=== PATIENT | female | born 1950 | race Asian ===

== ENCOUNTER 2018-08-12 11:37 | Emergency (ER) | payer MEDICAID ==
[~2018-08-12] VITALS: Ht 160 cm; Wt 73.9 kg
[2018-08-12 11:42] VITALS: BP 173/73
--- NOTE | 2018-08-12 12:11 | NUR ---
c/o dizziness upon awakening, high blood pressure, and jaw pain and tightness. pt also states she felt a prickly sensation in her chest but it has since gone away. DENIES N/V/D; SKIN IS PINK/WARM/DRY; AAOX4; LUNGS CLEAR BL; HR EVEN AND REGULAR; PT DENIES ANY FEVER, CP, SOB, OR COUGH AT THIS TIME; PATIENT STATES PAIN OF 5/10 AT THIS TIME; VSS; PATIENT POSITIONED FOR COMFORT; HOB ELEVATED; BEDRAILS UP X2; BED DOWN. ER MD MADE AWARE OF PT STATUS.
[2018-08-12 12:53] LABS: BASOPHILS % (AUTO) 0.5 % (0.0-2.0); EOSINOPHILS # (AUTO) 0.2 K/uL (0-0.4); EOSINOPHILS % (AUTO) 3.5 % (0.0-4.0); HEMATOCRIT 37.2 % (36-48); HEMOGLOBIN 12.8 g/dL (12.0-16.0); LYMPHOCYTES # (AUTO) 1.7 K/uL (2.5-16.5); LYMPHOCYTES % (AUTO) 31.7 % (20.5-51.1); MEAN CORPUSCULAR HEMOGLOBIN 29 pg (27-31); MEAN CORPUSCULAR HGB CONC 34 g/dL (33-37); MEAN CORPUSCULAR VOLUME 85.2 fL (80-94); MONOCYTES # (AUTO) 0.3 K/uL (0.8-1.0); NEUTROPHILS # (AUTO) 3.1 K/uL (1.8-7.7); NEUTROPHILS % (AUTO) 58.3 % (42.2-75.2); PLATELET COUNT (AUTO) 221 K/uL (140-450); RED BLOOD CELL COUNT(AUTO) 4.37 MIL/uL (4.20-5.40); RED CELL DISTRIBUTION WIDTH 13.7 % (11.6-13.7); WHITE BLOOD COUNT (AUTO) 5.3 K/uL (4.8-10.8)
[2018-08-12 13:01] LABS: ANION GAP 10.8 (8-16); CARBON DIOXIDE 28.6 mmol/L (21-32); CREATININE 0.8 mg/dL (0.6-1.3); POTASSIUM 3.4 mmol/L (3.5-5.1)
[2018-08-12 13:05] LABS: PROTHROMBIN TIME 9.9 secs (10.8-13.4)
--- NOTE | 2018-08-12 13:07 | NUR ---
PATIENT TAKEN TO CT WITH NIKOLE VIA JESUS MANUELRRICCARDO.
[2018-08-12 13:09] LABS: ALBUMIN 3.7 g/dL (3.4-5.0); TOTAL BILIRUBIN 0.6 mg/dL (0.0-1.0)
--- NOTE | 2018-08-12 13:20 | NUR ---
PATIENT RETURN FROM CT.
--- NOTE | 2018-08-12 13:40 | NUR ---
CAME BACK FROM LUNCH BREAK. CHECK PT. PT COMPLAINTS LEFT JAW TINGLING. MD MADE AWARE. VITAL SIGNS STABLE. NO SOB.
[2018-08-12] MEDS ORDERED: ASPIRIN 81 MG TAB.CHEW PO ONE (13:45)
--- NOTE | 2018-08-12 14:07 | NUR ---
PT IS EATING LUNCH IN BED.
--- NOTE | 2018-08-12 15:40 | NUR ---
DOCTOR AT BEDSIDE
[2018-08-12 16:10] VITALS: BP 145/58
--- NOTE | 2018-08-12 16:27 | NUR ---
Patient discharged with v/s stable. Written and verbal after care instructions given and explained. Patient verbalized understanding. Ambulatory with steady gait. All questions addressed prior to discharge. Advised to follow up with PMD. WITH PT.
== END 2018-08-12 16:27 | disposition home or self-care (01) ==
LOC: MED 11:37
DX: I10 Essential (primary) hypertension (principal); R42 Dizziness and giddiness; Z88.8 Allergy status to other drugs, medicaments and biological substances
CPT/HCPCS: 36415; 70450; 71045; 80053; 81002; 84484; 85025; 85610; 85730; 93005; 99284; Q0092

== ENCOUNTER 2021-03-10 10:52 | Emergency (ER) | payer OTHER, MEDICAID ==
[~2021-03-10] VITALS: Ht 160 cm; Wt 72.1 kg
[2021-03-10 10:57] VITALS: BP 186/75
--- NOTE | 2021-03-10 11:49 | NUR ---
PT AMBULATED TO ER BED 7
[2021-03-10] MEDS ORDERED: HYDROXYZINE HYDROCHLORIDE 10 MG TAB PO ONE (12:20)
--- NOTE | 2021-03-10 12:32 | NUR ---
LAB AT PT BEDSIDE
--- NOTE | 2021-03-10 12:40 | NUR ---
70 Y/O F HEART PALPITAION SINCE THIS MORNING, FLUSHED FACE AND LEG CRAMPING ALL FROM THIS MORNING. BP 157/78 UPPON ASSESMENT. NKA HX: HTN, OSTEOARTHRITIS
[2021-03-10 12:44] LABS: BASOPHILS % (AUTO) 0.5 % (0.0-2.0); EOSINOPHILS # (AUTO) 0.3 K/uL (0-0.4); EOSINOPHILS % (AUTO) 4.6 % (0.0-4.0); HEMATOCRIT 37.6 % (36-48); HEMOGLOBIN 12.9 g/dL (12.0-16.0); LYMPHOCYTES # (AUTO) 1.5 K/uL (2.5-16.5); LYMPHOCYTES % (AUTO) 24.3 % (20.5-51.1); MEAN CORPUSCULAR HEMOGLOBIN 29 pg (27-31); MEAN CORPUSCULAR HGB CONC 34 g/dL (33-37); MEAN CORPUSCULAR VOLUME 83.9 fL (80-94); MONOCYTES # (AUTO) 0.5 K/uL (0.8-1.0); MONOCYTES % (AUTO) 7.8 % (1.7-9.3); NEUTROPHILS # (AUTO) 3.8 K/uL (1.8-7.7); NEUTROPHILS % (AUTO) 62.8 % (42.2-75.2); PLATELET COUNT (AUTO) 279 K/uL (140-450); RED BLOOD CELL COUNT(AUTO) 4.48 MIL/uL (4.20-5.40); RED CELL DISTRIBUTION WIDTH 14.7 % (11.6-13.7)
--- NOTE | 2021-03-10 13:00 | NUR ---
PATIENT AMBULATED TO RESTROOM W/ ASSISTANCE
[2021-03-10 13:22] LABS: ALBUMIN 4.1 g/dL (3.4-5.0); ANION GAP 10.2 (8-16); CARBON DIOXIDE 31.5 mmol/L (21-32); CREATININE 0.8 mg/dL (0.6-1.3); POTASSIUM 3.7 mmol/L (3.5-5.1); TOTAL BILIRUBIN 0.3 mg/dL (0.0-1.0)
[2021-03-10] MEDS ORDERED: HYDR25CA1 PO (14:30)
[2021-03-10 14:47] VITALS: BP 144/68
--- NOTE | 2021-03-10 14:48 | NUR ---
Patient discharged with v/s stable. Written and verbal after care instructions given and explained. Patient alert, oriented and verbalized understanding of instructions. Ambulatory with steady gait. All questions addressed prior to discharge. ID band removed. Patient advised to follow up with PMD. Rx of HYDROXYZINE PAMOATE given. Opportunity to ask questions provided and answered.
--- NOTE | 2021-03-10 14:49 | NUR ---
The patient's care was reviewed and supervised by Marsha Tavarez RN.
== END 2021-03-10 14:48 | disposition home or self-care (01) ==
LOC: MED 10:52
DX: R00.2 Palpitations (principal); F41.9 Anxiety disorder, unspecified; L53.9 Erythematous condition, unspecified; I10 Essential (primary) hypertension; Z79.899 Other long term (current) drug therapy; Z88.8 Allergy status to other drugs, medicaments and biological substances
CPT/HCPCS: 36415; 80053; 81002; 82553; 85025; 93005; 99284

== ENCOUNTER 2022-07-30 10:59 | Emergency (ER) | payer OTHER, MEDICAID ==
[~2022-07-30] VITALS: Ht 160 cm; Wt 72.6 kg
[~2022-07-30 10:59] MED LIST: HYDR25CA1 PO
[2022-07-30 11:14] VITALS: BP 152/73
--- NOTE | 2022-07-30 13:24 | NUR ---
URINE COLLECTED AND SENT TO LAB
[2022-07-30] MEDS ORDERED: ACETAMINOPHEN 325 MG TAB PO ONE (13:25)
--- NOTE | 2022-07-30 13:38 | NUR ---
BLOOD DRAWN BY PHLEB
[2022-07-30 13:53] LABS: ALBUMIN 4.1 g/dL (3.4-5.0); ANION GAP 8.8 (8-16); ASPARTATE AMINOTRANSFERASE 41 U/L (15-37); CARBON DIOXIDE 33.7 mmol/L (21-32); CHLORIDE 102 mmol/L (98-107); GLUCOSE 117 mg/dL (74-106); LIPASE 189 U/L (73-393); POTASSIUM 3.5 mmol/L (3.5-5.1); SODIUM SERUM 141 mmol/L (136-145); TOTAL BILIRUBIN 0.4 mg/dL (0.0-1.0); UREA NITROGEN, BLOOD 27 mg/dL (7-18)
[2022-07-30 14:11] LABS: BASOPHILS % (AUTO) 0.4 % (0.0-2.0); EOSINOPHILS # (AUTO) 0.2 K/uL (0-0.4); EOSINOPHILS % (AUTO) 3.8 % (0.0-4.0); HEMATOCRIT 37.3 % (36-48); HEMOGLOBIN 12.8 g/dL (12.0-16.0); LYMPHOCYTES # (AUTO) 1.7 K/uL (2.5-16.5); LYMPHOCYTES % (AUTO) 31.3 % (20.5-51.1); MEAN CORPUSCULAR HEMOGLOBIN 29 pg (27-31); MEAN CORPUSCULAR HGB CONC 34 g/dL (33-37); MEAN CORPUSCULAR VOLUME 85.4 fL (80-94); MONOCYTES # (AUTO) 0.4 K/uL (0.8-1.0); MONOCYTES % (AUTO) 6.9 % (1.7-9.3); NEUTROPHILS # (AUTO) 3.2 K/uL (1.8-7.7); NEUTROPHILS % (AUTO) 57.6 % (42.2-75.2); PLATELET COUNT (AUTO) 251 K/uL (140-450); RED BLOOD CELL COUNT(AUTO) 4.37 MIL/uL (4.20-5.40); RED CELL DISTRIBUTION WIDTH 14.7 % (11.6-13.7); WHITE BLOOD COUNT (AUTO) 5.5 K/uL (4.8-10.8)
[2022-07-30 15:46] LABS: APPEARANCE,URINE CLEAR (CLEAR); BILIRUBIN,URINE NEGATIVE (NEGATIVE); BLOOD, URINE NEGATIVE (NEGATIVE); COLOR,URINE YELLOW (YELLOW); LEUKOCYTE ESTERASE ,URINE NEGATIVE (NEGATIVE); NITRITE, URINE NEGATIVE (NEGATIVE); UGLUCOSE NEGATIVE (NEGATIVE)
[2022-07-30] MEDS ORDERED: NACL 0.9% 1,000 ML IV ONE ×2 (16:00→16:05)
--- NOTE | 2022-07-30 16:05 | NUR ---
TO BED 8 W NO DISTRESS.
[2022-07-30 16:25] VITALS: BP 155/61
--- NOTE | 2022-07-30 17:06 | NUR ---
Patient discharged with v/s stable. Written and verbal after care instructions given and explained. Patient verbalized understanding. Ambulatory with steady gait. All questions addressed prior to discharge. Advised to follow up with PMD.
== END 2022-07-30 17:05 | disposition home or self-care (01) ==
LOC: MED 10:59
DX: R10.32 Left lower quadrant pain (principal); E87.5 Hyperkalemia; R30.0 Dysuria; I10 Essential (primary) hypertension; Z91.040 Latex allergy status
CPT/HCPCS: 36415; 74176; 80053; 81003; 83690; 85025; 96360; 99284; J7030